=== PATIENT | female | born 1970 | race Caucasian/White ===

== ENCOUNTER → 2022-08-20 | Day surgery (SDC) | payer OTHER ==
[~2022-08-20] MED LIST: Lactated Ringers 1,000 ML IV SCH; Propofol 200 MG/20 ML SDV IV ONE; Simethicone Drops 40 MG/0.6 ML 30 ML Bottle ONE; Sodium Chloride 0.9% 10 ML Syringe FLUSH PRN
== END ==
LOC: FB.SDS 06:16
PROVIDERS: ATTEND Surgery
DX: Z12.11 Encounter for screening for malignant neoplasm of colon (principal); K63.5 Polyp of colon; K57.30 Diverticulosis of large intestine without perforation or abscess without bleeding; I10 Essential (primary) hypertension; F33.1 Major depressive disorder, recurrent, moderate; Z79.899 Other long term (current) drug therapy
CPT/HCPCS: 00812; 45384; 88305; A9270; J2704; J7120

== ENCOUNTER 2023-01-11 22:06 | Emergency (ER) | payer OTHER | END 2023-01-11 23:07 | disposition home or self-care (01) | LOC: FB.ED 22:06 | DX: S80.02XA Contusion of left knee, initial encounter (principal); R07.81 Pleurodynia; I10 Essential (primary) hypertension; E66.9 Obesity, unspecified; Z68.31 Body mass index [BMI] 31.0-31.9, adult; Z98.890 Other specified postprocedural states; Z79.899 Other long term (current) drug therapy; W00.0XXA Fall on same level due to ice and snow, initial encounter | CPT/HCPCS: 99283 ==